=== PATIENT | male | born 1965 | race American Indian/Alaskan Native ===

== ENCOUNTER 2017-10-23 19:00 | Emergency (ER) | payer OTHER ==
[2017-10-23 19:06] VITALS: BP 118/80
--- NOTE | 2017-10-23 19:37 | Emergency Department Report ---
Minor Respiratory - HPI Chief Complaint: Upper Respiratory Infection Stated Complaint: BACK PAIN/LIGHTHEADED/STOMACH Time Seen by Provider: 10/23/17 19:31 Duration: 4 Days Pain Location: Other (generalized bodyaches) Severity: mild Minor Respiratory: Yes Rhinorrhea (clear), Yes Sore Throat, Yes Able to Tolerate Fluids, Yes Cough, Yes Sick Contacts, Yes Fever (fever x 2 days), No Ear Pain, No Hemoptysis, No Chest Pain, No Shortness of Breath Other History: This is a 51 y.o. male, presents with headache, abdominal pain, and bodyaches x 4 days. Patient states he never felt like this before and this is the first time he had to call out of work in years. He took theraflu x 2 days , then starting drinking nahum and lemon tea. States the fever last for 2 days but the body aches and chills continue. Denies chest pain, SOB, wheezing, abdominal pain, and diarrhea. ED Review of Systems ROS: Stated complaint: BACK PAIN/LIGHTHEADED/STOMACH Other details as noted in HPI Constitutional: no symptoms reported, see HPI, chills, fever, malaise. denies: diaphoresis, weakness Eyes: as per HPI. denies: eye pain, eye discharge, vision change ENT: as per HPI, throat pain, congestion. denies: ear pain, dental pain, hearing loss, epistaxis Respiratory: no symptoms reported, see HPI, cough. denies: orthopnea, shortness of breath, SOB with exertion, SOB at rest, stridor, wheezing Cardiovascular: as per HPI. denies: chest pain, palpitations, dyspnea on exertion, orthopnea, edema, syncope, paroxysmal nocturnal dyspnea Gastrointestinal: as per HPI. denies: abdominal pain, nausea, vomiting, diarrhea, constipation, hematemesis, melena, hematochezia Musculoskeletal: as per HPI, back pain, myalgia (upper and lower back). denies : joint swelling, arthralgia Neurological: as per HPI, headache. denies: weakness, numbness, paresthesias, confusion, abnormal gait, vertigo Psychiatric: as per HPI. denies: anxiety, depression, auditory hallucinations, visual hallucinations, homicidal thoughts, suicidal thoughts ED Past Medical Hx - Past Medical History Previous Medical History?: No - Surgical History Hx Appendectomy: Yes - Social History Smoking Status: Never Smoker Substance Use Type: None - Medications Home Medications: Home Medications Medication Instructions Recorded Confirmed Last Taken Type Benzonatate 200 mg PO TID 10 Days #30 capsule 10/23/17 Unknown Rx Fluticasone [Flonase] 1 spray NS QDAY #1 bottle 10/23/17 Unknown Rx Minor Respiratory Exam - Exam General: Vital signs noted. No distress. Alert and acting appropriately. HEENT: Yes Pharyngeal Erythema, Yes Moist Mucous Membranes, Yes Rhinorrhea ( clear discharge), No Pharyngeal Exudates, No Conjuctival Injection, No Frontal Tenderness, No Maxillary Tenderness Ear: Neither TM Bulge, Neither TM Erythema, Neither EAC Pain, Neither EAC Discharge Neck: Yes Supple, No Adenopathy Lungs: Yes Good Air Exchange, Yes Cough, No Wheezes, No Stridor, No Labored Respirations, No Retractions, No Use of Accessory Muscles, No Other Abnormal Lung Sounds Heart: Yes Regular, No Murmur Abdomen: Yes Normal Bowel Sounds, No Tenderness, No Peritoneal Signs Skin: No Rash, No Edema Neurologic: Alert and oriented, no deficits. Musculoskeletal: Unremarkable. ED Course Vital Signs 10/23/17 19:02 Temperature 98.1 F Pulse Rate 83 Respiratory 18 Rate Blood Pressure 118/80 O2 Sat by Pulse 96 Oximetry Critical care attestation.: If time is entered above; I have spent that time in minutes in the direct care of this critically ill patient, excluding procedure time. ED Disposition Clinical Impression: Nasopharyngitis acute Disposition: DC-01 TO HOME OR SELFCARE Is pt being admited?: No Does the pt Need Aspirin: No Condition: Stable Instructions: Upper Respiratory Infection (ED), Cold Symptoms (ED) Additional Instructions: Frequent hand washing to prevent spread of infection. Increase fluid intake. Prescriptions: Benzonatate 200 mg PO TID 10 Days #30 capsule Fluticasone [Flonase] 1 spray NS QDAY #1 bottle Referrals: AMADEO DUBON MD [Primary Care Provider] - 3-5 Days Time of Disposition: 20:16 Print Language: UZBEK
== END 2017-10-23 20:42 | disposition home or self-care (01) ==
LOC: ED 19:00
DX: J00 Acute nasopharyngitis [common cold] (principal)
CPT/HCPCS: 87400; 99282

== ENCOUNTER 2020-09-21 15:23 | Emergency (ER) | payer OTHER ==
--- NOTE | 2020-09-21 15:35 | Emergency Department Report ---
ED Extremity Problem HPI - General Chief complaint: Extremity Problem,Nontraumatic Stated complaint: RT FOOT PAIN Time Seen by Provider: 09/21/20 15:29 Source: patient Mode of arrival: Ambulatory Limitations: No Limitations - History of Present Illness Initial comments: This is a pleasant 84-year-old male presents the emergency department chief complaint of pain to the base of his right heel. 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 He denies any known past medical history, current medication use or known allergies to medications. Denies any associated fever, chills, night sweats, headache, dizziness, blurry vision, nausea, vomiting, diarrhea, chest pain, shortness of breath or any other associated symptoms. - Related Data Previous Rx's Medication Instructions Recorded Last Taken Type Benzonatate 200 mg PO TID 10 Days #30 capsule 10/23/17 Unknown Rx Fluticasone [Flonase] 1 spray NS QDAY #1 bottle 10/23/17 Unknown Rx Naproxen [Naprosyn TAB] 500 mg PO BID #20 tablet 09/21/20 Unknown Rx Allergies Allergy/AdvReac Type Severity Reaction Status Date / Time No Known Allergies Allergy Unverified 10/23/17 19:06 ED Review of Systems ROS: Stated complaint: RT FOOT PAIN Other details as noted in HPI Comment: All other systems reviewed and negative Constitutional: denies: chills, fever Eyes: denies: eye pain, eye discharge, vision change ENT: denies: ear pain, throat pain Respiratory: denies: cough, shortness of breath, wheezing Cardiovascular: denies: chest pain, palpitations Endocrine: no symptoms reported Gastrointestinal: denies: abdominal pain, nausea, diarrhea Genitourinary: denies: urgency, dysuria Musculoskeletal: as per HPI, arthralgia. denies: back pain, joint swelling Skin: denies: rash, lesions Neurological: denies: headache, weakness, paresthesias Psychiatric: denies: anxiety, depression Hematological/Lymphatic: denies: easy bleeding, easy bruising ED Past Medical Hx - Past Medical History Previous Medical History?: No - Surgical History Past Surgical History?: Yes Hx Appendectomy: Yes - Social History Smoking Status: Never Smoker Substance Use Type: None - Medications Home Medications: Home Medications Medication Instructions Recorded Confirmed Last Taken Type Benzonatate 200 mg PO TID 10 Days #30 capsule 10/23/17 Unknown Rx Fluticasone [Flonase] 1 spray NS QDAY #1 bottle 10/23/17 Unknown Rx Naproxen [Naprosyn TAB] 500 mg PO BID #20 tablet 09/21/20 Unknown Rx ED Physical Exam - General Limitations: No Limitations General appearance: alert, in no apparent distress - Head Head exam: Present: atraumatic, normocephalic - Eye Eye exam: Present: normal appearance, PERRL, EOMI Pupils: Present: normal accommodation - ENT ENT exam: Present: normal exam, normal orophraynx, mucous membranes moist - Neck Neck exam: Present: normal inspection, full ROM. Absent: tenderness, meningismus - Respiratory Respiratory exam: Present: normal lung sounds bilaterally. Absent: respiratory distress, wheezes, rales, rhonchi, stridor - Cardiovascular Cardiovascular Exam: Present: regular rate, normal rhythm, normal heart sounds. Absent: systolic murmur, diastolic murmur, rubs, gallop - GI/Abdominal GI/Abdominal exam: Present: soft, normal bowel sounds. Absent: distended, tenderness, guarding, rebound, rigid - Rectal Rectal exam: Present: deferred - Extremities Exam Extremities exam: Present: normal inspection, full ROM, tenderness (Mild tenderness at the base of the heel, no deformity, no tenderness to the posterior calf, no lower extreme edema, normal DP and PT pulses. Normal distal sensation capillary refill. No wounds). Absent: calf tenderness - Back Exam Back exam: Present: normal inspection, full ROM. Absent: tenderness, CVA tenderness (R), CVA tenderness (L) - Neurological Exam Neurological exam: Present: alert, oriented X3, normal gait - Psychiatric Psychiatric exam: Present: normal affect, normal mood - Skin Skin exam: Present: warm, dry, intact, normal color. Absent: rash ED Medical Decision Making - Medical Decision Making Patient exam was unremarkable. Suspect his pain may be secondary to persistent pressure while in traffic. No deformity. Normal neurovascular exam. He had a low risk by Wells criteria for DVT. Recommended outpatient follow-up with podiatry and will treat him with anti-inflammatories. Recommend he return emerge department if he develops any change or worsening symptoms. Verbalized understanding the diagnosis, treatment plan and follow-up instructions all his questions were answered. - Differential Diagnosis strain, contusion, fracture Critical care attestation.: If time is entered above; I have spent that time in minutes in the direct care of this critically ill patient, excluding procedure time. ED Disposition Clinical Impression: Heel pain Qualifiers: Laterality: right Qualified Code(s): M79.671 - Pain in right foot Disposition: - TO HOME OR SELFCARE Is pt being admited?: No Condition: Stable Instructions: Heel Pad Atrophy Prescriptions: Naproxen [Naprosyn TAB] 500 mg PO BID #20 tablet Referrals: JOI MCCANN DPM [Staff Physician] - 3-5 Days Time of Disposition: 15:35
== END 2020-09-21 16:10 | disposition home or self-care (01) ==
LOC: ED 15:23
DX: M79.671 Pain in right foot (principal); Z79.899 Other long term (current) drug therapy; Z90.49 Acquired absence of other specified parts of digestive tract
CPT/HCPCS: 99282

== ENCOUNTER 2020-11-20 18:21 | Emergency (ER) | payer OTHER ==
--- NOTE | 2020-11-20 19:16 | XRay Report ---
CHEST PA AND LATERAL VIEWS INDICATION: cough. COMPARISON: None FINDINGS: Support devices: None Heart: Normal Lungs/Pleura: No acute pulmonary or pleural findings. IMPRESSION: 1. No significant abnormality. Signer Name: Davis Ignacio MD Signed: 11/20/2020 7:12 PM Workstation Name: [id number]
[2020-11-20 20:10] VITALS: BP 124/83
--- NOTE | 2020-11-20 20:18 | Emergency Department Report ---
- General Chief Complaint: Upper Respiratory Infection Stated Complaint: COUGH;SINUS CONGESTION Time Seen by Provider: 11/20/20 20:09 Source: patient Mode of arrival: Ambulatory Limitations: No Limitations - History of Present Illness Initial Comments: Patient is a 55-year-old male presents emergency room complaints of URI symptoms that began a week ago. He has associated cough with clear sputum production, nasal congestion, chest congestion, chills. He states initially it started with a dry sore throat but states that his throat completely resolved on its own. He denies any nausea, vomiting, diarrhea, fever, generalized body aches, shortness of breath, chest pain, abdominal pain. He denies any sick contacts or recent travel. No past medical history. He denies any allergies to medications. He states he is a never smoker. - Related Data Previous Rx's Medication Instructions Recorded Last Taken Type Benzonatate 200 mg PO TID 10 Days #30 capsule 10/23/17 Unknown Rx Fluticasone [Flonase] 1 spray NS QDAY #1 bottle 10/23/17 Unknown Rx Naproxen [Naprosyn TAB] 500 mg PO BID #20 tablet 09/21/20 Unknown Rx Allergies Allergy/AdvReac Type Severity Reaction Status Date / Time No Known Allergies Allergy Unverified 10/23/17 19:06 ED Review of Systems ROS: Stated complaint: COUGH;SINUS CONGESTION Other details as noted in HPI Comment: All other systems reviewed and negative ED Past Medical Hx - Past Medical History Previous Medical History?: No - Surgical History Past Surgical History?: Yes Hx Appendectomy: Yes - Social History Smoking Status: Never Smoker Substance Use Type: None - Medications Home Medications: Home Medications Medication Instructions Recorded Confirmed Last Taken Type Benzonatate 200 mg PO TID 10 Days #30 capsule 10/23/17 Unknown Rx Fluticasone [Flonase] 1 spray NS QDAY #1 bottle 10/23/17 Unknown Rx Naproxen [Naprosyn TAB] 500 mg PO BID #20 tablet 09/21/20 Unknown Rx ED Physical Exam - General Limitations: No Limitations General appearance: alert, in no apparent distress - Head Head exam: Present: atraumatic, normocephalic - Eye Eye exam: Present: normal appearance - ENT ENT exam: Present: mucous membranes moist - Respiratory Respiratory exam: Present: normal lung sounds bilaterally. Absent: respiratory distress, wheezes, rales, rhonchi, stridor, chest wall tenderness, accessory muscle use, decreased breath sounds, prolonged expiratory - Cardiovascular Cardiovascular Exam: Present: regular rate, normal rhythm, normal heart sounds. Absent: systolic murmur, diastolic murmur, rubs, gallop - Neurological Exam Neurological exam: Present: alert, oriented X3 - Psychiatric Psychiatric exam: Present: normal affect, normal mood - Skin Skin exam: Present: warm, dry, intact ED Course Vital Signs 11/20/20 18:31 Temperature 97.8 F Pulse Rate 86 Respiratory 18 Rate Blood Pressure 124/83 O2 Sat by Pulse 99 Oximetry ED Medical Decision Making - Radiology Data Radiology results: report reviewed Ordering Physician: LIAM BOWMAN Date of Service: 11/20/20 Procedure(s): XR chest routine 2V Accession Number(s): [id number] cc: LIAM BOWMAN Fluoro Time In Minutes: CHEST PA AND LATERAL VIEWS INDICATION: cough. COMPARISON: None FINDINGS: Support devices: None Heart: Normal Lungs/Pleura: No acute pulmonary or pleural findings. IMPRESSION: 1. No significant abnormality. Signer Name: Davis Ignacio MD Signed: 11/20/2020 7:12 PM Workstation Name: [id number] Transcribed By: TM Dictated By: Davis Ignacio MD Electronically Authenticated By: Davis Ignacio MD Signed Date/Time: 11/20/201911 DD/ 10 TD/TT: - Medical Decision Making Patient is a 55-year-old male presents emergency room complaints of URI symptoms that began a week ago. He has associated cough with clear sputum production, na arlen congestion, chest congestion, chills. He states initially it started with a dry sore throat but states that his throat completely resolved on its own. He denies any nausea, vomiting, diarrhea, fever, generalized body aches, shortness of breath, chest pain, abdominal pain. He denies any sick contacts or recent travel. No past medical history. He denies any allergies to medications. He states he is a never smoker. Vitals are normal. Breath sounds are clear bilaterally, no wheezing, no rales, no rhonchi. Chest x-ray 1. No significant abnormality. Symptoms likely related to viral URI. Patient has no clinical signs or symptoms of bacterial pneumonia or bacterial bronchitis. Discussed all results with patient. Patient is presenting with the symptoms during a COVID-19 pandemic, discussed COVID-19 with patient, discussed strict return precautions, discussed outpatient testing, discussed self quarantine. Patient does not meet hospital criteria for COVID-19 testing or for COVID-19 admission. Advised patient Please increase your fluid intake over the next several days. May take Tylenol as needed for fever or body aches. May take [id number] cold symptom relief medication such as Mucinex or TheraFlu. may use a humidifier. Follow-up with a primary care doctor for reexamination. Return to emergency room immediately for any new or worsening symptoms including but not limited to difficulty breathing, shortness of breath, severe chest pain, unable to tolerate by mouth intake, etc. Please self quarantine for 10 days from the onset of your symptoms. Please do not go out in public. If you are around others at home please wear a mask. If you need to cough or sneeze please do so in a napkin and immediately throw it away and immediately wash your hands. Wash your hands frequently. Wipe everything down. Recommend for you to get COVID-19 testing, may have this done at primary care doctor, health department, [facility], etc. - Differential Diagnosis PNA, URI, COVID-19, viral syndrome, acute bronchitis Critical care attestation.: If time is entered above; I have spent that time in minutes in the direct care o f this critically ill patient, excluding procedure time. ED Disposition Clinical Impression: Viral URI Disposition: DC-01 TO HOME OR SELFCARE Is pt being admited?: No Does the pt Need Aspirin: No Condition: Stable Instructions: Viral Respiratory Infection Additional Instructions: Please increase your fluid intake over the next several days. May take Tylenol as needed for fever or body aches. May take [id number] cold symptom relief medication such as Mucinex or TheraFlu. may use a humidifier. Follow-up with a primary care doctor for reexamination. Return to emergency room immediately for any new or worsening symptoms including but not limited to difficulty breathing, shortness of breath, severe chest pain, unable to tolerate by mouth intake, etc. Please self quarantine for 10 days from the onset of your symptoms. Please do not go out in public. If you are around others at home please wear a mask. If you need to cough or sneeze please do so in a napkin and immediately throw it away and immediately wash your hands. Wash your hands frequently. Wipe everything down. Recommend for you to get COVID-19 testing, may have this done at primary care doctor, health department, [facility], etc. Referrals: PRIMARY CAREMD [Primary Care Provider] - 3-5 Days CRISSY PANDYA MD [Staff Physician] - 3-[address] [facility] [Provider Group] - 3-5 Days Forms: Work/School Release Form(ED) Time of Disposition: 20:17 Print Language: CHINESE
== END 2020-11-20 20:36 | disposition home or self-care (01) ==
LOC: ED 18:21
DX: B34.9 Viral infection, unspecified (principal); Z20.828 Contact with and (suspected) exposure to other viral communicable diseases; Z90.49 Acquired absence of other specified parts of digestive tract; Z79.899 Other long term (current) drug therapy
CPT/HCPCS: 71046; 99283